=== PATIENT | female | born 1945 | race Caucasian/White ===

== ENCOUNTER 2022-08-14 11:12 | Emergency (ER) | payer OTHER ==
[~2022-08-14] VITALS: Ht 162.6 cm; Wt 83.5 kg
[2022-08-14] MEDS ORDERED: LISINOPRIL10 MG PO (11:30)
[2022-08-14] MEDS ORDERED: FLUOXETINE HCL20 MG PO (11:30)
[2022-08-14] MEDS ORDERED: LEVOTHYROXINE50 MCG PO (11:30)
[2022-08-14] MEDS ORDERED: AMLODIPINE BESY10 MG PO (11:30)
[2022-08-14] MEDS ORDERED: PROTONIX20 MG PO (11:30)
[2022-08-14] MEDS ORDERED: CORTISPORIN-TC10 M1 LEFT EAR (12:03)
== END 2022-08-14 12:20 | disposition home or self-care (01) ==
LOC: FSED 11:22
DX: T16.2XXA Foreign body in left ear, initial encounter (principal); I10 Essential (primary) hypertension; E03.9 Hypothyroidism, unspecified; K21.9 Gastro-esophageal reflux disease without esophagitis; F41.9 Anxiety disorder, unspecified
CPT/HCPCS: 99283